=== PATIENT | female | born 1975 | race Caucasian/White ===

== ENCOUNTER 2020-05-13 13:00 | Emergency (ER) | payer OTHER ==
[~2020-05-13] VITALS: Ht 170.2 cm; Wt 64.9 kg
[2020-05-13 13:35] LABS: BASOPHILS ABSOLUTE AUTO 0.03 K/mm3 (0.00-0.23); BASOPHILS PERCENT AUTO 0 % (0-2); EOSINOPHILS ABSOLUTE AUTO 0.05 K/mm3 (0.00-0.68); EOSINOPHILS PERCENT AUTO 1 % (0-6); Hematocrit 41.8 % (33.0-51.0); Hemoglobin 14.1 g/dL (11.5-16.0); IMMATURE GRAN ABSOLUTE AUTO 0.02 K/mm3 (0.00-0.10); IMMATURE GRAN PERCENT AUTO 0 % (0-1); LYMPHOCYTES ABSOLUTE AUTO 2.73 K/mm3 (0.84-5.20); LYMPHOCYTES PERCENT AUTO 35 % (21-46); MONOCYTES ABSOLUTE AUTO 0.56 K/mm3 (0.16-1.47); MONOCYTES PERCENT AUTO 7 % (4-13); Mean Corpuscular HGB 29.6 pg (26.0-34.0); Mean Corpuscular HGB Conc 33.7 g/dL (31.5-36.5); Mean Corpuscular Volume 88 fL (80-100); Mean Platelet Volume 10.3 fL (9.1-12.4); NEUTROPHILS ABSOLUTE AUTO 4.34 K/mm3 (1.96-9.15); NEUTROPHILS PERCENT AUTO 56 % (41-73); Platelet Count 247 K/mm3 (150-400); RDW Coefficient Variation 13.3 % (11.7-14.2); RDW Standard Deviation 43.3 fL (35.1-46.3); Red Blood Cell Count 4.76 M/mm3 (3.80-5.20); White Blood Cell Count 7.73 K/mm3 (4.00-11.30)
[2020-05-13 13:47] LABS: Alanine Aminotransfer (ALT/SGP 19 U/L (12-78); Albumin, Blood 3.9 g/dL (3.4-5.0); Albumin/Globulin Ratio 1.1 (0.8-1.8); Alk Phos 41 U/L (50-136); Anion Gap 5 mmol/L (6-16); Aspartate Aminotrans (AST/SGOT 14 U/L (12-37); Bilirubin, Total 0.7 mg/dL (0.1-1.0); Blood Urea Nitrogen 15 mg/dL (8-24); Bun/Creatinine Ratio 15.5 (12.0-20.0); CO2, Blood 24 mmol/L (21-32); Calcium, Blood 9.2 mg/dL (8.5-10.1); Chloride, Blood 109 mmol/L (98-108); Creatinine, Blood 0.97 mg/dL (0.40-1.00); Globulin, Blood 3.7 g/dL (2.2-4.0); Glomerular Filtration Rate >60 (60-); Glucose, Blood 81 mg/dL (70-99); Sodium, Blood 138 mmol/L (136-145); Total Protein, Blood 7.6 g/dL (6.4-8.2)
[2020-05-13 16:01] LABS: Source, Urine Clean Catch
[2020-05-13 16:05] LABS: Appearance, Urine Hazy (Clear); Bilirubin, Urine Neg (Neg); Blood, Urine 1+ (Neg); Color, Urine Yellow (P-Yellow); Glucose Qualitative, Urine Neg (Neg); Ketones, Urine 4+ (Neg); Leukocyte Esterase, Urine 1+ (Neg); Nitrite, Urine Pos (Neg); Protein, Urine 1+ (Neg); Specific Gravity, Urine 1.025 (1.003-1.022); Urobilinogen, Urine NORM (Normal)
[2020-05-13 16:17] LABS: Bacteria Mod /hpf; Mucus Light (0-Heavy); Red Blood Cells, Urine 0-2 /hpf (0-2); Squamous Epithelial Cells Few /hpf (Few); White Blood Cells, Urine 0-2 /hpf (0-5)
[2020-05-13] MEDS ORDERED: Cephalexin500 M1 PO (16:50)
[2020-05-13] MEDS ORDERED: Zofran4 MG PO (16:50)
== END 2020-05-13 18:15 | disposition home or self-care (01) ==
LOC: ER 13:00
PROVIDERS: Emergency Medicine; Physician Assistant
DX: N39.0 Urinary tract infection, site not specified (principal); Z88.2 Allergy status to sulfonamides; Z88.5 Allergy status to narcotic agent
CPT/HCPCS: 36415; 74176; 80053; 81001; 83690; 85025; 87086; 96365; 96375; 99284-25; A9270; J0696; J2405; J2550; J7030

== ENCOUNTER 2024-09-15 07:52 | Inpatient (IN) | payer OTHER ==
[~2024-09-15] VITALS: Ht 171 cm; Wt 73.7 kg
[2024-09-15] VITALS (16 sets, daily range): BP systolic 97–122; BP diastolic 57–74
[~2024-09-15 07:52] MED LIST: Cephalexin500 M1 PO; GABA300 PO; LEVSOD100 PO; MELO7.5 PO; METPHE18ER PO; RIZATRIPTAN10 MG SL; Seroquel Xr50 MG PO; Zofran4 MG PO
[2024-09-15] MEDS ORDERED: CeFAZolin Sodium 2,000 MG in NS 100 ML IV SCH (08:40)
--- NOTE | 2024-09-15 09:19 | NUR ---
Ambulatory in Day Surgery History, Chart, Medications and Allergies reviewed before start of procedure.Patient confirms NPO status and agrees with scheduled surgery. Patient reports completing Chlorhexadine shower X2 prior to admission to hospital.Surgical site prepped with 2% Chlorhexidine cloth wipe.
[2024-09-15] MEDS ORDERED: Bupivacaine 0.5% W/EPI 1:200000 SDV 30 ML Vial ONE (09:44)
[2024-09-15] MEDS ORDERED: Sugammadex Sodium 200 MG/2ML SDV (100 MG/ML) ONE ×2 (09:51→10:06)
[2024-09-15] MEDS ORDERED: HYDROmorphone HCl/Pf 1MG SYR ONE (09:51)
[2024-09-15] MEDS ORDERED: Lidocaine 2%-Epineph 1:200000 20 ML SDV ONE (10:07)
[2024-09-15] MEDS ORDERED: Ondansetron HCl 2 MG / ML 2ML Vial ONE ×2 (10:07→12:01)
[2024-09-15] MEDS ORDERED: FentaNYL Citrate 50 MCG/ML 2 ML Injection ONE ×2 (10:07→12:19)
[2024-09-15] MEDS ORDERED: Dexamethasone Sod Phos 10 MG/ML 1ML VIAL ONE (10:07)
[2024-09-15] MEDS ORDERED: Ketorolac Tromethamine 30mg Vial ONE (10:10)
[2024-09-15] MEDS ORDERED: ePHEDrine Sulfate 50 MG/ML 1ML Injection ONE (10:18)
[2024-09-15] MEDS ORDERED: HYDROmorphone HCl/Pf 1MG SYR IV PRN (11:10)
[2024-09-15] MEDS ORDERED: Ondansetron HCl 2 MG / ML 2ML Vial IV PRN (11:10)
[2024-09-15] MEDS ORDERED: FentaNYL Citrate 50 MCG/ML 2 ML Injection IV PRN ×2 (11:10→11:15)
[2024-09-15] MEDS ORDERED: fentaNYL citrate 20 MCG/ML 30MLSYR IV PRN (11:55)
[2024-09-15] MEDS ORDERED: Ketorolac Tromethamine 30mg Vial IV SCH (12:00)
--- NOTE | 2024-09-15 12:36 | NUR ---
1155 - PT TO PACU, VSS RA. DSG CDI. DENIES NUMB/TINGLY, PULSES (+) 1204 - 4 MG ZOFRAN FOR C/O MILD NAUSEA PT NOTED TO BE WITHDRAWN, QUIET 1220 - 25 MCG FENT FOR 6/10 PAIN NAUSEA IMPROVED DECLINED OFFER REPOSITION TO SIDE. ACCEPTED PILLOW B/W LEGS 1233 - 2ND DOSE 25 MCG FENT ADMIN. TOELRATED WELL
--- NOTE | 2024-09-15 18:47 | NUR ---
SHIFT SUMMARY POD0 TUCKER, A/OX4, VSS, TOLERATING PO, AQUACELL C/D/I, SHE HAS NOT BEE OOB YET, MOORE DRAINING TO GRAVITY. NO ACUTE EVENTS THIS SHIFT, CALL LIGHT IN REACH.
[2024-09-16 00:04] VITALS: BP 100/63
[2024-09-16 04:24] VITALS: BP 96/64
[2024-09-16 04:43] VITALS: BP 107/69
--- NOTE | 2024-09-16 05:55 | NUR ---
SHIFT SUMMARY POD 1 S/P TUCKER. AQUACEL TO TRANSVERSE ABD INCISION INTACT WITH SCANT SHADOWING NOTED. LAWSON PO INTAKE, DENIES N/V. MOORE REMOVED THIS MORNING, AWAITING VOID. SCANT VAGINAL BLEEDING NOTED. IS AMBULATING IN HALLWAY WITH FWW, GB AND SBA, USES CANE AT BASELINE. IS A/OX4. PAIN MANAGED WITH MEDICAL SECRETARY, PLAN TO D/C PER ORDERS AND START ORAL PAIN MEDS. PT REPORTS SLEEPING WELL T/O NIGHT. PT CURRENTLY RESTING IN BED, EATING SNACK. HAS CALL LIGHT IN REACH, RESP EVEN/UNLABORED. PT PLEASANT AND COOPERATIVE WITH CARE. WILL GIVE REPORT TO ONCOMING RN.
[2024-09-16 06:21] LABS: BASOPHILS ABSOLUTE AUTO 0.01 K/mm3 (0.00-0.23); BASOPHILS PERCENT AUTO 0 % (0-2); EOSINOPHILS ABSOLUTE AUTO 0.00 K/mm3 (0.00-0.68); EOSINOPHILS PERCENT AUTO 0 % (0-6); Hematocrit 28.8 % (33.0-51.0); Hemoglobin 9.8 g/dL (11.5-16.0); IMMATURE GRAN ABSOLUTE AUTO 0.03 K/mm3 (0.00-0.10); IMMATURE GRAN PERCENT AUTO 0 % (0-1); LYMPHOCYTES ABSOLUTE AUTO 1.18 K/mm3 (0.84-5.20); LYMPHOCYTES PERCENT AUTO 13 % (21-46); MONOCYTES ABSOLUTE AUTO 0.53 K/mm3 (0.16-1.47); MONOCYTES PERCENT AUTO 6 % (4-13); Mean Corpuscular HGB Conc 34.0 g/dL (31.5-36.5); Mean Corpuscular Volume 89 fL (80-100); NEUTROPHILS ABSOLUTE AUTO 7.21 K/mm3 (1.96-9.15); NEUTROPHILS PERCENT AUTO 81 % (41-73); NRBC ABSOLUTE 0.00 K/mm3 (0.00-0.02); NRBC Auto 0.0 /100 WBC (0.0-0.2); Platelet Count 161 K/mm3 (150-400); RDW Coefficient Variation 13.2 % (11.7-14.2); RDW Standard Deviation 43.4 fL (35.1-46.3)
[2024-09-16 06:59] VITALS: BP 107/65
--- NOTE | 2024-09-16 14:08 | NUR ---
UPDATE PATIENT IS AMBULATING, VOIDING, REPORTS PASSING FLATUS, AND CRAMPING PAIN TO ABD. DR. CHUNG IN TO SEE PATIENT, PATIENT IS GOING TO STAY ONE MORE NIGHT, FOR PAIN MANAGEMENT. CALLS APROPRIATELY.
[2024-09-16 15:24] VITALS: BP 98/58
--- NOTE | 2024-09-16 16:54 | NUR ---
SHIFT SUMMARY PATIENT IS AOX4, TOTAL ABD HYSTER WITH TRANSVERSE INCISION, AQUACEL HAS SLIGHT SHADOW. PATIENT IS UP TO THE BATHROOM AND AMBULATES IN ROOM SBA. VOIDING T/O SHIFT. TOLERATING PO INTAKE AND PO PAIN MEDICATION. QUINTIN PAD WITH SCANT SPOTTING. ABLE TO MAKE NEEDS KNOWN. PLAN TO DC IN AM. CALL LIGHT IN REACH.
[2024-09-16 19:35] VITALS: BP 104/69
[2024-09-17 05:06] VITALS: BP 96/62
--- NOTE | 2024-09-17 06:27 | NUR ---
SHIFT SUMMARY- MEDICATED PT WITH SCHEDULED AND PRN MEDS PER EMAR. PT RESTED WELL T/O NOC. DENIES AND VAGINAL BLEEDING. NO ACUTE CHANGES THIS SHIFT. PT PLANNING ON DISCHARGE TODAY.
[2024-09-17 07:30] VITALS: BP 109/69
[2024-09-17] MEDS ORDERED: Polyethylene Glycol 3350 17 gm PO SCH (10:00)
[2024-09-17] MEDS ORDERED: Docusate Sodium/Senna 1 Tab PO SCH ×2 (10:00→21:00)
--- NOTE | 2024-09-17 16:43 | NUR ---
PT DISCHARGED AT 1345 WITH DC INSTRUCTIONS AND AQUACEL DRESSING FOR PRN CHANGE. SENT WITH WRITTEN SCRIPT FOR PERCOCET, [facility] UNA[facility]IL[facility], ADVISED TO USE AVAILABLE PHARMACY AND ASK FOR REIMBURSEMENT THROUGH [facility]. MEDICATED FOR PAIN PRIOR TO DC, WHEELCHAIR STAFF ASSIST TO PRIVATE CAR, PT'S TO DRIVE HER HOME.
[2024-09-18] MEDS ORDERED: Polyethylene Glycol 3350 17 gm PO SCH (09:00)
== END 2024-09-17 13:50 | disposition home or self-care (01) | DRG 743 ==
LOC: SURS 07:52
PROVIDERS: ADMIT Obstetrics & Gynecology
PROC: 0UT90ZZ Resection of Uterus, Open Approach (ICD-10-PCS; principal; 2024-09-15 09:45)
PROC: 0UT70ZZ Resection of Bilateral Fallopian Tubes, Open Approach (ICD-10-PCS; 2024-09-15 09:45)
PROC: 0UTC0ZZ Resection of Cervix, Open Approach (ICD-10-PCS; 2024-09-15 09:45)
DX: N93.8 Other specified abnormal uterine and vaginal bleeding (principal); N73.6 Female pelvic peritoneal adhesions (postinfective); G43.909 Migraine, unspecified, not intractable, without status migrainosus; Z79.899 Other long term (current) drug therapy; F43.10 Post-traumatic stress disorder, unspecified; F41.9 Anxiety disorder, unspecified; Z87.820 Personal history of traumatic brain injury; Z98.890 Other specified postprocedural states; F17.210 Nicotine dependence, cigarettes, uncomplicated; Z87.442 Personal history of urinary calculi; Z88.2 Allergy status to sulfonamides; Z88.5 Allergy status to narcotic agent
CPT/HCPCS: 36415; 85025; 88307; A9270; J0690; J1100; J1171; J1885; J2405; J2704; J3010; J7120

== ENCOUNTER 2024-10-01 20:35 | Emergency (ER) | payer OTHER ==
[~2024-10-01] VITALS: Ht 170.2 cm; Wt 70.8 kg
[2024-10-01 21:59] LABS: BASOPHILS ABSOLUTE AUTO 0.09 K/mm3 (0.00-0.23); BASOPHILS PERCENT AUTO 1 % (0-2); EOSINOPHILS ABSOLUTE AUTO 0.89 K/mm3 (0.00-0.68); EOSINOPHILS PERCENT AUTO 10 % (0-6); Hematocrit 39.5 % (33.0-51.0); Hemoglobin 13.6 g/dL (11.5-16.0); IMMATURE GRAN ABSOLUTE AUTO 0.03 K/mm3 (0.00-0.10); IMMATURE GRAN PERCENT AUTO 0 % (0-1); LYMPHOCYTES ABSOLUTE AUTO 3.00 K/mm3 (0.84-5.20); LYMPHOCYTES PERCENT AUTO 35 % (21-46); MONOCYTES ABSOLUTE AUTO 0.52 K/mm3 (0.16-1.47); MONOCYTES PERCENT AUTO 6 % (4-13); Mean Corpuscular HGB Conc 34.4 g/dL (31.5-36.5); Mean Corpuscular Volume 89 fL (80-100); NEUTROPHILS ABSOLUTE AUTO 4.12 K/mm3 (1.96-9.15); NEUTROPHILS PERCENT AUTO 48 % (41-73); NRBC ABSOLUTE 0.00 K/mm3 (0.00-0.02); NRBC Auto 0.0 /100 WBC (0.0-0.2); Platelet Count 322 K/mm3 (150-400); RDW Coefficient Variation 13.1 % (11.7-14.2); RDW Standard Deviation 42.2 fL (35.1-46.3)
[2024-10-01 22:20] LABS: Alanine Aminotransfer (ALT/SGP 34.0 U/L (12-78); Albumin, Blood 3.8 g/dL (3.4-5.0); Albumin/Globulin Ratio 1.0 (0.8-1.8); Anion Gap 9.0 mmol/L (3-11); Aspartate Aminotrans (AST/SGOT 21.0 U/L (12-37); Bilirubin, Total 0.4 mg/dL (0.1-1.0); Blood Urea Nitrogen 14.0 mg/dL (8-24); CO2, Blood 25.0 mmol/L (21-32); Calcium, Blood 9.3 mg/dL (8.5-10.1); Chloride, Blood 107.0 mmol/L (98-108); Creatinine, Blood 0.96 mg/dL (0.40-1.00); Globulin, Blood 3.7 g/dL (2.2-4.0); Glucose, Blood 97.0 mg/dL (70-99); Potassium, Blood 4.2 mmol/L (3.5-5.5); Sodium, Blood 137.0 mmol/L (136-145); Total Protein, Blood 7.5 g/dL (6.4-8.2)
[2024-10-01] MEDS ORDERED: Morphine Sulfate 4 MG/1 ML Injection IV ONE (22:50)
[2024-10-01] MEDS ORDERED: Ondansetron HCl 2 MG / ML 2ML Vial IV ONE (22:50)
[2024-10-02] VITALS: BP 113/76
== END 2024-10-02 00:09 | disposition home or self-care (01) ==
LOC: ER 20:35
PROVIDERS: Student in an Organized Health Care Education/Training Program
DX: R51.9 Headache, unspecified (principal); M54.9 Dorsalgia, unspecified; R93.5 Abnormal findings on diagnostic imaging of other abdominal regions, including retroperitoneum; R10.84 Generalized abdominal pain; Z88.2 Allergy status to sulfonamides; Z88.5 Allergy status to narcotic agent; Z79.899 Other long term (current) drug therapy; Z87.820 Personal history of traumatic brain injury; W10.9XXA Fall (on) (from) unspecified stairs and steps, initial encounter
CPT/HCPCS: 70450; 71045; 74177; 80053; 85025; 96374-59; 96375; 99284-25; J2270; J2405; Q9967